=== PATIENT | female | born 1970 ===

== ENCOUNTER 2018-12-25 12:26 | Emergency (ER) | payer OTHER ==
[~2018-12-25] VITALS: Ht 165.1 cm; Wt 61.2 kg
[2018-12-25] MEDS ORDERED: AMOX-CLAV 875-1 EACH PO (15:17)
[2018-12-25] MEDS ORDERED: INTESTINEX680 M1 PO (15:17)
== END 2018-12-25 15:38 | disposition home or self-care (01) ==
LOC: ER 12:26
DX: S60.471A Other superficial bite of left index finger, initial encounter (principal); S60.470A Other superficial bite of right index finger, initial encounter; W55.01XA Bitten by cat, initial encounter; Y93.89 Activity, other specified; Y92.89 Other specified places as the place of occurrence of the external cause; Y99.8 Other external cause status

== ENCOUNTER 2019-04-09 11:07 | Emergency (ER) | payer OTHER ==
[~2019-04-09] VITALS: Ht 165.1 cm; Wt 61.2 kg
[~2019-04-09 11:07] MED LIST: AMOX-CLAV 875-1 EACH PO; INTESTINEX680 M1 PO
== END 2019-04-09 19:12 | disposition home or self-care (01) ==
LOC: ER 11:07
DX: K52.89 Other specified noninfective gastroenteritis and colitis (principal)

== ENCOUNTER 2019-10-06 19:42 | Emergency (ER) | payer OTHER ==
[~2019-10-06] VITALS: Ht 165.1 cm; Wt 63.5 kg
== END 2019-10-07 11:16 | disposition home or self-care (01) ==
LOC: ER 19:42
DX: M79.89 Other specified soft tissue disorders (principal)